=== PATIENT | female | born 1975 | race Two or more races ===

== ENCOUNTER 2016-11-25 16:27 | Emergency (ER) | payer MEDICAID ==
[2016-11-25 16:37] VITALS: RESP 16; TEMP 98.1
--- NOTE | 2016-11-25 17:24 | EDPHY ---
H & P Time Seen by Provider: 11/25/16 16:39 HPI/ROS: CHIEF COMPLAINT: sore throat HISTORY OF PRESENT ILLNESS: Patient is a 41-year-old female who presents to the emergency department sore throat. She states last month she was diagnosed with strep pharyngitis. She also states that she waited too long to get treatment. She was initially treated with penicillin. Her sore throat and not improved. She was switched to azithromycin. She slowly improved. However , over the past 3 days she has developed a sore throat again. It is bilateral. It is moderate. Worse with swallowing. She reports subjective fever. No nausea or vomiting. No cough. It looks exactly the same. REVIEW OF SYSTEMS: My complete review of systems is negative except as mentioned in the HPI. Past Medical/Surgical History: Previous strep pharyngitis Social history: Denies smoking Smoking Status: Never smoked Physical Exam: Vitals noted. Afebrile GENERAL: Well-appearing, in no acute distress, alert. HEENT: Eyes normal to inspection. Pharynx has mild erythema with discharge. Uvula is midline. No visible mass. No asymmetry.CHIEF COMPLAINT: NECK: No thyromegaly, no lymphadenopathy, supple. RESPIRATORY: Clear to auscultation bilaterally, no rales, rhonchi or wheezing. CVS: Regular rate and rhythm, no rubs, murmurs, or gallops. ABDOMEN: Soft, nontender, nondistended, no organomegaly. BACK: Normal to inspection, no CVA tenderness. SKIN: Normal color, no rash, warm, dry. No pallor. EXTREMITIES: [No pedal edema, no calf tenderness, no Homans sign or cords, no joint swelling. NEURO/PSYCH: [Alert and oriented x3, normal mood and affect, normal motor sensory exam. No obvious cranial nerve deficit. Constitutional: Initial Vital Signs Temperature (C) 36.7 C 11/25/16 16:34 Heart Rate 91 11/25/16 16:34 Respiratory Rate 16 11/25/16 16:34 Blood Pressure 102/79 11/25/16 16:34 O2 Sat (%) 97 11/25/16 16:34 O2 Delivery Mode Room Air Allergies/Adverse Reactions: lactose Allergy (Verified 01/12/15 18:21) Home Medications: Medication Instructions Recorded Hydrocodone/APAP 5/325 [[place] 1 - 2 each PO Q4-6PRN PRN #20 tab 01/12/15 5/325] hydrOXYzine HCL [Hydroxyzine HCl] 25 mg PO 01/12/15 Amoxicillin/Clavulanate Pot 875 mg PO BID 10 Days 11/25/16 [Augmentin 875 mg tab] Medical Decision Making ED Course/Re-evaluation: In the emergency department I discussed possible etiologies with the patient. Patient had negative strep screen. I discussed this with the patient. I discussed limitations of the testing. The patient will be given Augmentin. She will follow up primary care physician. Differential Diagnosis: My differential includes but is not limited to pharyngitis, strep pharyngitis, retropharyngeal abscess, peritonsillar abscess, tonsillitis, tracheitis, epiglottitis - Data Points Laboratory Results: 11/25/16 11/25/16 Unknown 16:40 Group A Strep Screen NEGATIVE (NEGATIVE) Group A Strep DNA Pending Departure - Departure Disposition: Home, Routine, Self-Care Clinical Impression: Acute pharyngitis Qualifiers: Pharyngitis/tonsillitis etiology: unspecified etiology Qualifier Code: (J02.9) Acute pharyngitis, unspecified Condition: Good Instructions: Pharyngitis (ED) Additional Instructions: Take your entire course of antibiotics. Return with increasing pain, fever, shortness of breath or any other concerns. Referrals: Catherine Joaquin PA [Primary Care Provider] - 5-7 days, call for appt. Prescriptions: Amoxicillin/Clavulanate Pot [Augmentin 875 mg tab] 875 mg PO BID 10 Days
[2016-11-25 17:32] VITALS: BP 104/75; PULSE 89; O2SAT 96
== END 2016-11-25 17:31 | disposition home or self-care (01) ==
DX: J02.9 Acute pharyngitis, unspecified (principal)

== ENCOUNTER 2017-07-24 20:24 | Emergency (ER) | payer MEDICAID ==
[2017-07-24 20:30] VITALS: TEMP 98.1
--- NOTE | 2017-07-24 21:07 | EDPHY ---
H & P Stated Complaint: sore throat x1 wk Time Seen by Provider: 07/24/17 20:52 HPI/ROS: CHIEF COMPLAINT: Sore throat x1 week HISTORY OF PRESENT ILLNESS: 41-year-old immunocompetent female complaining of 1 week of sore throat, cervical adenopathy. No fever no chills. No change in voice. No nuchal rigidity. No cough. No rash. No known sick contacts. No urinary abnormality. No abdominal pain. No chest pain. No URI symptoms. REVIEW OF SYSTEMS: A ten point review of systems was performed and is negative with the exception of the items mentioned in the HPI PAST MEDICAL & SURGICAL HISTORY: No pertinent medical or surgical history SOCIAL HISTORY: Nonsmoker PHYSICAL EXAM (Prior to examination, patient consented to physical exam, hands were washed and my usual and customary physical exam procedures followed) 1) GENERAL: Well-developed, well-nourished, alert and oriented. Appears to be in no acute distress. 2) HEAD: Normocephalic, atraumatic 3) HEENT: Pupils equal, round, reactive to light bilaterally. Sclera anicteric. Nasopharynx, oropharynx, clear, no lesions. No tonsillar enlargement or tonsillar exudate. Uvula midline. No trismus no drooling. Ears bilaterally with normal tympanic membranes. 4) NECK: Full range of motion, no meningeal signs. Positive bilateral cervical adenopathy, tender. 5) LUNGS: Clear auscultation bilaterally, no wheezes, no rhonchi, no retractions. 6) HEART: Regular rate and rhythm, no murmur, no heave, no gallop. 7) ABDOMEN: No guarding, no rebound, no focal tenderness, negative McBurney's, negative Ying's, negative Rovsing's, negative peritoneal sign, no left upper quadrant pain, no splenomegaly 8) MUSCULOSKELETAL: Moving all extremities, no focal areas of tenderness, no obvious trauma. No peripheral edema or discoloration. 9) BACK: No CVA tenderness. 10) SKIN: No rash, no petechiae. 11) Psychiatric: Patient is oriented X 3, there is no agitation. DIFFERENTIAL DIAGNOSIS: in no particular order including but not limited to viral pharyngitis, strep pharyngitis, mononucleosis, meningitis - Personal History LMP (Females 10-55): Now Current Tetanus/Diphtheria Vaccine: Yes - Medical/Surgical History Hx Asthma: No Hx Chronic Respiratory Disease: No Hx Diabetes: No Hx Cardiac Disease: No Hx Renal Disease: No Hx Cirrhosis: No Hx Alcoholism: No Hx HIV/AIDS: No Hx Splenectomy or Spleen Trauma: No Other PMH: Denies - Social History Smoking Status: Never smoked Constitutional: Initial Vital Signs Temperature (C) 36.7 C 07/24/17 20:27 Heart Rate 86 07/24/17 20:27 Respiratory Rate 18 07/24/17 20:27 Blood Pressure 111/90 H 07/24/17 20:27 O2 Sat (%) 97 07/24/17 20:27 O2 Delivery Mode Room Air Allergies/Adverse Reactions: lactose Allergy (Verified 07/24/17 20:27) Home Medications: Medication Instructions Recorded hydrOXYzine HCL [Hydroxyzine HCl] 25 mg PO 01/12/15 Medical Decision Making ED Course/Re-evaluation: 9:53 p.m. re-evaluation with serial exams. Discussed her negative strep and negative mono testing. Low clinical suspicion for strep pharyngitis. Doubt peritonsillar abscess. Doubt meningitis. We discussed supportive therapy. Offered steroids which she declines. Discussed possibility that rapid strep could be negative and further testing could be positive in which case we would contact her. I do not think that further diagnostic studies indicated from the emergency department. Plan will be discharged with usual and customary discharge precautions and instructions. She feels comfortable being discharged. All questions and concerns addressed by myself. - Data Points Laboratory Results: 07/24/17 07/24/17 07/24/17 Unknown 21:10 20:35 Monoscreen NEGATIVE (NEGATIVE) Group A Strep Screen NEGATIVE (NEGATIVE) Group A Strep DNA Pending Departure - Departure Disposition: Home, Routine, Self-Care Clinical Impression: Acute pharyngitis Qualifiers: Pharyngitis/tonsillitis etiology: unspecified etiology Qualified Code(s): J02.9 - Acute pharyngitis, unspecified Condition: Good Instructions: Pharyngitis (ED) Additional Instructions: Return to the ER immediately if you cannot swallow, have drooling, fevers, neck stiffness, cannot open your jaw, or any other symptoms that concern you. Referrals: Catherine Joaquin PA [Primary Care Provider] - 1-2 days without fail
[2017-07-24 22:04] VITALS: BP 128/85; PULSE 85; RESP 16; O2SAT 94
== END 2017-07-24 22:04 | disposition home or self-care (01) ==
DX: J02.9 Acute pharyngitis, unspecified (principal)

== ENCOUNTER 2019-02-15 14:21 | Emergency (ER) | payer MEDICAID ==
--- NOTE | 2019-02-15 14:54 | EDPHY ---
General Time Seen by Provider: 02/15/19 14:37 Narrative: CLINICAL IMPRESSION: Pleurisy, intermittent chest pain ASSESSMENT/PLAN: 43-year-old female with no reported past medical history presents to the emergency department with 2 days of atraumatic, intermittent "twinges" of left- sided chest discomfort. No associated shortness of breath, radiating pain, back neck jaw or arm pain, syncope. She has no reported cardiovascular history , no first-degree family relative with cardiovascular history, and does not report a history of hypertension, diabetes, hyperlipidemia, TIA or CVA. She is a nonsmoker, does not drink alcohol socially, and is not on estrogen based control. No clinical signs of DVT. Wells criteria 0, perc negative, low clinical suspicion of pulmonary embolism. D-dimer negative. Chest x-ray with no acute cardiopulmonary disease or pneumonia. EKG shows normal sinus rhythm, no acute ST or T-wave changes, reviewed with Dr. Valdivia, and troponin is also negative. Remainder of lab work is reassuring. Patient's heart score is 0. I do not feel she has ACS and I do not feel she requires admission to the hospital based on her low risk HEART score. We discussed NSAID therapy, hydration and he PACS for possible pleurisy, I recommend PCP follow-up in cardiology referral was also provided. Low threshold for return to ED sooner for worsening symptoms as outlined in person and discharge papers. Case discussed with Dr. Valdivia. DIFFERENTIAL DX: Differential diagnosis includes but not limited to myocardial ischemia, pulmonary embolus, chest wall pain, pleural inflammation, musculoskeletal chest wall pain, aortic aneurysm, and pulmonary infectious causes. ED PROCEDURES: See lab and/or imaging results below ED COURSE: 1520: HEART score of 0. WELLS criteria score 0, PERC negative. Labs reviewed. EKG shows no acute ST or T-wave changes. D-dimer negative, troponin negative, lab work reassuring. Chest x-ray with no acute cardiopulmonary disease. EKG reviewed with Dr. Valdivia. Patient's workup reviewed with her. She is currently asymptomatic. Vital signs remained stable. Plan for discharge home, outpatient PCP and Cardiology follow-up. Patient is comfortable with this plan. CHIEF COMPLAINT: Intermittent left-sided chest pain HPI: 43-year-old otherwise healthy female presents to the emergency department with complaints of intermittent twinges of left anterior chest wall pain since yesterday. Patient experience the pain while she was filing paperwork. She also admits to taking an energy drink approximately 1 hr prior to pain onset. She slept comfortably without pain. This morning she noted the pain would intermittently reoccur. She tried 600 mg of ibuprofen without significant improvement. No palpable breast mass. She admits she has had this pain in the past and spoke to her primary care doctor about this who recommended routine mammogram. She has not had a history of breast cancer no family history of breast cancer. She was ill with a viral illness approximately 10 days ago. She traveled to [place] approximately 2 weeks ago. No asymmetric leg pain or calf swelling and no history of DVT or PE. She denies palpitations, shortness of breath, syncope. Pain is nonradiating and very short-lived when it does occur. No first-degree family relative with cardiovascular disease. No reported history of hypertension, hyperlipidemia, diabetes. She does not take estrogen based control. PAST MEDICAL HISTORY: None reported See nurse/triage notes for additional history if applicable Pertinent Past Surgical History: None reported Family History: No first-degree family relative with cardiovascular disease. Social History: Nonsmoker, drinks alcohol rarely REVIEW OF SYSTEMS: All other systems negative Constitutional: No fever, no chills, appetite change. Eyes: No discharge, vision change ENT: No sore throat, congestion, ear pain. Cardiovascular: Positive for intermittent chest pain, no palpitations. Respiratory: No cough, no shortness of breath. Gastrointestinal: No abdominal pain, no vomiting, diarrhea. Genitourinary: No hematuria, dysuria, flank pain, pelvic pain Musculoskeletal: No back pain, joint swelling, joint pain, myalgias. Skin: No rashes, color change. Neurological: No headache, dizziness, weakness. PHYSICAL EXAM: General Appearance: Alert, oriented, appropriate, cooperative, NAD, well hydrated, laying comfortably in the bed, non-toxic appearing, VSS, no hypoxia. HEENT: Oropharynx clear is no erythema or exudates, no tonsillar hypertrophy or asymmetry. Dentition without abnormality. Eyes: PERRLA, no acute vision change, nystagmus, swelling, discharge, pain or photosensitivity. Conjunctiva pink, no pallor or injection Neck: Supple, nontender, no lymphadenopathy, no midline pain, FROM, no meningismus. No carotid bruits Respiratory: There are no retractions, lungs are clear to auscultation. No reproducible chest wall discomfort to palpation Cardiac: Regular rate and rhythm, no murmurs or gallops. Gastrointestinal: Abdomen is soft, nontender, bowel sounds normal, no masses/ hernia, no rigidity, guarding or focal peritoneal findings. Neurological: [ Alert and oriented x 3 Skin: Warm, dry, no rashes, no nodules on palpation. Musculoskeletal: Extremities are symmetrical, full range of motion, no tenderness, deformity, swelling, or erythema. No asymmetric calf swelling erythema or pain Psychiatric: Patient is oriented X 3, there is no agitation. MEDICAL DECISION MAKING: Patient was seen independently. Secondary supervising physician at time of evaluation was Dr. Valdivia. Diagnosis: Pleurisy, intermittent chest pain. New, requires workup Summary: See Assessment and Plan for summary of ED visit Clinical lab tests: ordered / reviewed. Independent visualization of images, tracing, or specimens: Yes. Decision to obtain medical records or history from someone other than the patient: No Review / Summarize previous medical records: None available Discussed patient with another provider: Dr. Valdivia Patient Progress: Improved, stable for discharge. - Diagnostics Imaging Results: Imaging Impressions Chest X-Ray 02/15/19 14:38 Impression: Normal chest. - History Smoking Status: Never smoked - Objective Vital Signs: Initial Vital Signs Temperature (C) 36.7 C 02/15/19 14:25 Heart Rate 86 02/15/19 14:25 Respiratory Rate 16 02/15/19 14:25 Blood Pressure 130/84 H 02/15/19 14:25 O2 Sat (%) 99 02/15/19 14:25 O2 Delivery Mode Room Air Allergies/Adverse Reactions: lactose Allergy (Verified 07/24/17 20:27) Home Medications: Medication Instructions Recorded NK [No Known Home Meds] 02/15/19 Laboratory Results: Laboratory Results 02/15/19 14:30 02/15/19 14:30 02/15/19 02/15/19 02/15/19 14:47 14:30 14:30 WBC RBC Hgb Hct MCV MCH MCHC RDW Plt Count MPV Neut % (Auto) Lymph % (Auto) [place] % (Auto) Eos % (Auto) Baso % (Auto) Nucleat RBC Rel Count Absolute Neuts (auto) Absolute Lymphs (auto) Absolute Monos (auto) Absolute Eos (auto) Absolute Basos (auto) Absolute Nucleated RBC Immature Gran % Immature Gran # D-Dimer 0.29 ug/mLFEU ug/mLFEU (0.00-0.50) Sodium 142 mEq/L mEq/L (135-145) Potassium 3.6 mEq/L mEq/L (3.5-5.2) Chloride 105 mEq/L mEq/L (97-110) Carbon Dioxide 25 mEq/l mEq/l (22-31) Anion Gap 12 mEq/L mEq/L (6-14) BUN 9 mg/dL mg/dL (7-23) Creatinine 0.6 mg/dL mg/dL (0.6-1.0) Estimated GFR > 60 Glucose 88 mg/dL mg/dL (70-100) Calcium 9.5 mg/dL mg/dL (8.5-10.4) POC Troponin I 0.00 ng/mL ng/mL (0.00-0.08) 02/15/19 14:30 WBC 7.32 10^3/uL 10^3/uL (3.80-9.50) RBC 4.49 10^6/uL 10^6/uL (4.18-5.33) Hgb 13.8 g/dL g/dL (12.6-16.3) Hct 42.0 % % (38.0-47.0) MCV 93.5 fL fL (81.5-99.8) MCH 30.7 pg pg (27.9-34.1) MCHC 32.9 g/dL g/dL (32.4-36.7) RDW 12.1 % % (11.5-15.2) Plt Count 288 10^3/uL 10^3/uL (150-400) MPV 11.3 fL fL (8.7-11.7) Neut % (Auto) 65.4 % % (39.3-74.2) Lymph % (Auto) 26.6 % % (15.0-45.0) [place] % (Auto) 7.2 % % (4.5-13.0) Eos % (Auto) 0.4 % L % (0.6-7.6) Baso % (Auto) 0.3 % % (0.3-1.7) Nucleat RBC Rel Count 0.0 % % (0.0-0.2) Absolute Neuts (auto) 4.78 10^3/uL 10^3/uL (1.70-6.50) Absolute Lymphs (auto) 1.95 10^3/uL 10^3/uL (1.00-3.00) Absolute Monos (auto) 0.53 10^3/uL 10^3/uL (0.30-0.80) Absolute Eos (auto) 0.03 10^3/uL 10^3/uL (0.03-0.40) Absolute Basos (auto) 0.02 10^3/uL 10^3/uL (0.02-0.10) Absolute Nucleated RBC 0.00 10^3/uL 10^3/uL (0-0.01) Immature Gran % 0.1 % % (0.0-1.1) Immature Gran # 0.01 10^3/uL 10^3/uL (0.00-0.10) D-Dimer Sodium Potassium Chloride Carbon Dioxide Anion Gap BUN Creatinine Estimated GFR Glucose Calcium POC Troponin I Point of Care Test Results: Chemistry 02/15/19 14:47 POC Troponin I 0.00 ng/mL ng/mL (0.00-0.08) Departure - Departure Disposition: Home, Routine, Self-Care Clinical Impression: Pleurisy Condition: Good Instructions: Pleurisy (ED) Additional Instructions: DISCHARGE INSTRUCTIONS FROM YOUR DOCTOR Thank you for visiting our emergency department today. You were treated by a physician underwriting assistant today and your case was reviewed with our ED Attending physician. Please keep in mind that discharge from the emergency department does not mean that there is nothing wrong - it simply means that we have not identified an emergency condition that requires further evaluation or treatment in the hospital. You should always plan to follow up with primary care for re- evaluation of your condition in the next 2-3 days. If you have been referred to a specialist, please call as soon as possible (today or tomorrow) to schedule your follow up appointment at the appropriate time. DIAGNOSTIC EVALUATION IN THE EMERGENCY DEPARTMENT INCLUDED CHEST X-RAY, EKG, CARDIAC ENZYMES, D-DIMER, AND LABORATORY EVALUATION. WE SEE NO EVIDENCE OF ACUTE CORONARY SYNDROME, ACUTE HEART ATTACK, BLOOD CLOT, PNEUMONIA, PULMONARY MASS, ELECTROLYTE IMBALANCE, OR EKG ABNORMALITY. YOU HAVE VERY LOW RISK FACTORS FOR ADVERSE CARDIAC EVENTS AND BLOOD CLOTS. WE RECOMMEND FOLLOW-UP WITH PRIMARY CARE. OBTAIN ROUTINE SCREENING MAMMOGRAPHY RECOMMENDED. RETURN TO THE EMERGENCY DEPARTMENT FOR WORSENING, PERSISTENT CHEST PAIN, SHORTNESS OF BREATH, FAINTING EPISODES, ARM, JAW OR NECK PAIN OR NUMBNESS, OR ANY OTHER CONCERNS. People present with illnesses and injuries in different ways, and it is always possible that we have missed something. You may always return for re-evaluation if symptoms worsen or if they are not improving or if you develop new/different symptoms. Again, thank you for choosing our emergency department. We hope that you feel better. Referrals: Catherine Joaquin PA [Primary Care Provider] - 1-2 days without fail Mart Landaverde MD [Medical Doctor] - 3-4 days, if not improved
[2019-02-15 14:59] LABS: PLATELET COUNT 288 10^3/uL (150-400)
[2019-02-15 15:44] VITALS: BP 108/80
--- NOTE | 2019-02-15 16:37 | CPEKG ---
Test Reason : OPEN Blood Pressure : / mmHG Vent. Rate : 081 BPM Atrial Rate : 080 BPM P-R Int : 120 ms QRS Dur : 082 ms QT Int : 382 ms P-R-T Axes : 044 058 032 degrees QTc Int : 444 ms Sinus rhythm Confirmed by Feng Valdivia ([id number]) on 02/15/2019 4:37:37 PM Referred By: Feng Valdivia Confirmed By:Feng Valdivia
== END 2019-02-15 15:43 | disposition home or self-care (01) ==
DX: R09.1 Pleurisy (principal); R07.9 Chest pain, unspecified
CPT/HCPCS: 84484-ER